=== PATIENT | female | born 1995 | race Caucasian/White ===

== ENCOUNTER 2017-01-05 13:37 | Emergency (ER) | payer MEDICAID ==
[~2017-01-05] VITALS: Ht 167.6 cm; Wt 92.5 kg
[2017-01-05 13:47] VITALS: BP 144/105
== END 2017-01-05 16:01 | disposition home or self-care (01) ==
LOC: ED 13:37
DX: K08.89 Other specified disorders of teeth and supporting structures (principal)

== ENCOUNTER 2017-06-05 17:50 | Emergency (ER) | payer MEDICAID ==
[2017-06-05 19:41] VITALS: BP 116/67
== END 2017-06-05 19:41 | disposition home or self-care (01) ==
LOC: ED 17:50
DX: R10.9 Unspecified abdominal pain (principal); N93.9 Abnormal uterine and vaginal bleeding, unspecified

== ENCOUNTER 2017-07-20 06:13 | Emergency (ER) | payer MEDICAID ==
[~2017-07-20] VITALS: Ht 165.1 cm; Wt 74.8 kg
[2017-07-20 06:42] VITALS: BP 131/78
[2017-07-21 04:23] LABS: RAPID PLASMA REAGIN Non Reactive (Non Reactive)
== END 2017-07-20 08:30 | disposition home or self-care (01) ==
LOC: ED 06:13
PROVIDERS: Emergency Medicine
DX: N73.9 Female pelvic inflammatory disease, unspecified (principal); F17.210 Nicotine dependence, cigarettes, uncomplicated; Z90.49 Acquired absence of other specified parts of digestive tract
CPT/HCPCS: 87491; 87591; 99406; J0696; J1885

== ENCOUNTER 2017-08-16 17:36 | Emergency (ER) | payer MEDICAID ==
[~2017-08-16] VITALS: Ht 165.1 cm; Wt 75.7 kg
[2017-08-16 18:04] VITALS: Ht 165.1 cm; Wt 75.7 kg
[2017-08-16 19:45] LABS: BASOPHIL % 0.4 % (0-2); PLATELET COUNT 221 x10^3mcL (130-400)
[2017-08-16 19:48] LABS: RED CELL DISTRIBUTION WIDTH 19.4 % (11.5-14.5)
[2017-08-16 21:48] VITALS: BP 114/84
== END 2017-08-16 20:40 | disposition home or self-care (01) ==
LOC: ED 17:36
PROVIDERS: Emergency Medicine
DX: O20.9 Hemorrhage in early pregnancy, unspecified (principal); O21.9 Vomiting of pregnancy, unspecified; Z3A.08 8 weeks gestation of pregnancy
CPT/HCPCS: 36415

== ENCOUNTER 2019-05-21 13:39 | Emergency (ER) | payer SELFPAY ==
[~2019-05-21] VITALS: Ht 165.1 cm; Wt 86.2 kg
[2019-05-21 13:56] VITALS: Ht 165.1 cm; Wt 86.2 kg
[2019-05-21 15:30] VITALS: BP 135/87
== END 2019-05-21 15:30 | disposition home or self-care (01) ==
LOC: ED 13:39
DX: J06.9 Acute upper respiratory infection, unspecified (principal); Z90.49 Acquired absence of other specified parts of digestive tract; Z98.890 Other specified postprocedural states
CPT/HCPCS: J1100